=== PATIENT | male | born 1965 | race Asian ===

== ENCOUNTER 2020-04-08 20:37 | Emergency (ER) | payer OTHER ==
[~2020-04-08] VITALS: Ht 185.4 cm; Wt 102.1 kg
[2020-04-08 21:32] VITALS: BP 148/99; TEMP 98
== END 2020-04-08 21:37 | disposition home or self-care (01) ==
LOC: ED 20:37
PROC: 0HQ1XZZ Repair Face Skin, External Approach (ICD-10-PCS; principal; 2020-04-08)
DX: S01.81XA Laceration without foreign body of other part of head, initial encounter (principal); W54.0XXA Bitten by dog, initial encounter; Y92.89 Other specified places as the place of occurrence of the external cause
CPT/HCPCS: 90471; 90715; 99283